=== PATIENT | male | born 1975 | race Caucasian/White ===

== ENCOUNTER 2016-04-10 10:54 | Emergency (ER) | payer OTHER ==
[~2016-04-10] VITALS: Ht 170.2 cm; Wt 90.0 kg
[2016-04-10 10:55] VITALS: BP 140/84; PULSE 64; RESP 12; TEMP 98.2; O2SAT 98
--- NOTE | 2016-04-10 11:27 | PD ---
HPI Chief Complaint: Abdominal Pain Time Seen by Provider: 11:25 Travel History International Travel<30 days: No Contact w/Intl Traveler<30days: No Traveled to known affect area: No History of Present Illness HPI 40-year-old male presents to the emergency department for evaluation of epigastric abdominal pain. Patient reports pain originally started 1 month ago , but worsened last night and this morning. Patient states he vomited once on Friday night. He denies any constipation or diarrhea. No blood in his stools. He denies any chronic medical problems and denies taking prescribed medications. Patient reports being a heavy drinker drinking approximately 6-7 beers daily, except on the weekends or he drinks approximately 12 beers daily. Patient denies tobacco or illegal drug use. Patient denies any history of chronic abdominal problems or any previous abdominal surgeries. He denies any chest pain or shortness of breath. PFSH Past Medical History Hx Anticoagulant Therapy: No Cardiovascular Problems: No Chemotherapy: No Cerebrovascular Accident: No Diabetes: No Respiratory: No Social History Alcohol Use: Yes (OCCASSIONALLY) Tobacco Use: No Substance Use: No Allergies-Medications (Allergen,Severity, Reaction): Coded Allergies: No Known Allergies (Unverified , 04/10/16) Reported Meds & Prescriptions Reported Meds & Active Scripts Active Carafate Liq (Sucralfate) 1 Gm/10 Ml Susp 1 Gm PO TID on empty stomach Protonix (Pantoprazole Sodium) 40 Mg Tab 40 Mg PO DAILY Review of Systems Except as stated in HPI: all other systems reviewed are Neg Physical Exam Narrative GENERAL: Well-developed well-nourished male patient, ambulatory. Afebrile. SKIN: Warm and dry. HEAD: Normocephalic. Atraumatic. EYES: No scleral icterus. No injection or drainage. NECK: Supple, trachea midline. No JVD or lymphadenopathy. CARDIOVASCULAR: Regular rate and rhythm without murmurs, gallops, or rubs. RESPIRATORY: Breath sounds equal bilaterally. No accessory muscle use. Lungs sounds are clear to auscultation. GASTROINTESTINAL: Abdomen soft and nondistended. Patient has epigastric tenderness to palpation. MUSCULOSKELETAL: No cyanosis, or edema. BACK: Nontender without obvious deformity. No CVA tenderness. Data Data Last Documented VS Vital Signs Date Time Temp Pulse Resp B/P Pulse Ox O2 Delivery O2 Flow Rate FiO2 04/10/16 15:28 98.4 50 14 143/91 98 Room Air Orders Complete Blood Count With Diff (04/10/16 11:24) Comprehensive Metabolic Panel (04/10/16 11:24) Lipase (04/10/16 11:24) Iv Access Insert/Monitor (04/10/16 11:24) Ecg Monitoring (04/10/16 11:24) Oximetry (04/10/16 11:24) Sodium Chloride 0.9% Flush (Ns Flush) (04/10/16 11:30) Electrocardiogram (04/10/16 11:24) Famotidine Inj (Pepcid Inj) (04/10/16 14:15) Al-Mag Hy-Si 40-40-4 Mg/Ml Liq (Mag-Al P (04/10/16 14:15) Lidocaine 2% Viscous (Xylocaine 2% Visco (04/10/16 14:15) Labs Laboratory Tests Test 04/10/16 11:30 White Blood Count 8.1 TH/MM3 Red Blood Count 5.24 MIL/MM3 Hemoglobin 14.4 GM/DL Hematocrit 41.5 % Mean Corpuscular Volume 79.2 FL Mean Corpuscular Hemoglobin 27.5 PG Mean Corpuscular Hemoglobin 34.8 % Concent Red Cell Distribution Width 13.3 % Platelet Count 261 TH/MM3 Mean Platelet Volume 9.6 FL Neutrophils (%) (Auto) 48.4 % Lymphocytes (%) (Auto) 39.4 % Monocytes (%) (Auto) 9.1 % Eosinophils (%) (Auto) 2.4 % Basophils (%) (Auto) 0.7 % Neutrophils # (Auto) 3.9 TH/MM3 Lymphocytes # (Auto) 3.2 TH/MM3 Monocytes # (Auto) 0.7 TH/MM3 Eosinophils # (Auto) 0.2 TH/MM3 Basophils # (Auto) 0.1 TH/MM3 CBC Comment DIFF FINAL Differential Comment Sodium Level 139 MEQ/L Potassium Level 3.6 MEQ/L Chloride Level 104 MEQ/L Carbon Dioxide Level 26.4 MEQ/L Anion Gap 9 MEQ/L Blood Urea Nitrogen 12 MG/DL Creatinine 0.86 MG/DL Estimat Glomerular Filtration 100 ML/MIN Rate Random Glucose 107 MG/DL Calcium Level 8.6 MG/DL Total Bilirubin 0.7 MG/DL Aspartate Amino Transf 44 U/L (AST/SGOT) Alanine Aminotransferase 86 U/L (ALT/SGPT) Alkaline Phosphatase 76 U/L Total Protein 7.5 GM/DL Albumin 3.7 GM/DL Lipase 124 U/L MDM Medical Decision Making Medical Screen Exam Complete: Yes Emergency Medical Condition: Yes Medical Record Reviewed: Yes Differential Diagnosis Pancreatitis versus gastritis versus diverticulitis versus cholecystitis Narrative Course 40-year-old male presents to the emergency department for evaluation of epigastric abdominal pain for 1 month, worsening last night. Patient admits to heavy alcohol use. EKG, CBC, CMP, Lipase are ordered and pending. Workup is initiated in triage. Patient will be moved to medical pod for further evaluation and disposition. Scripts Sucralfate Liq (Carafate Liq)1 Gm/10 Ml Susp1 Gm PO TID #900 ML Ref 0 on empty stomach Prov:Armida Jones DO 04/10/16 Pantoprazole (Protonix)40 Mg Tab40 Mg PO DAILY #30 TAB Ref 0 Prov:Armida Jones DO 04/10/16 Chasidy Trujillo Apr 10, 2016 11:27
[2016-04-10] MEDS ORDERED: SODIUM CHLORIDE 0.9% FLUSH 5 ML FLUSH IVF PRN (11:30)
[2016-04-10 11:58] LABS: AUTOMATED NEUTROPHIL # 3.9 TH/MM3 (1.8-7.7); BASOPHIL # 0.1 TH/MM3 (0-0.2); BASOPHIL % 0.7 % (0.0-2.0); EOSINOPHIL # 0.2 TH/MM3 (0-0.4); EOSINOPHIL % 2.4 % (0.0-4.0); HEMATOCRIT 41.5 % (39.0-51.0); HEMO FLAGS DIFF FINAL; LYMPH % 39.4 % (9.0-44.0); LYMPHOCYTE # 3.2 TH/MM3 (1.0-4.8); MEAN CELL VOLUME 79.2 FL (80.0-100.0); MEAN CORPUSCULAR HEMOGLOBIN 27.5 PG (27.0-34.0); MEAN CORPUSCULAR HGB CONC 34.8 % (32.0-36.0); MONO % 9.1 % (0.0-8.0); NEUT % 48.4 % (16.0-70.0); PLATELET COUNT 261 TH/MM3 (150-450); RED BLOOD COUNT 5.24 MIL/MM3 (4.50-5.90); RED CELL DISTRIBUTION WIDTH 13.3 % (11.6-17.2); WHITE BLOOD COUNT 8.1 TH/MM3 (4.0-11.0)
[2016-04-10 12:50] LABS: ALKALINE PHOSPHATASE 76 U/L (45-117); ALT (GPT) 86 U/L (12-78); AST (GOT) 44 U/L (15-37); BLOOD UREA NITROGEN 12 MG/DL (7-18); GLOMERULAR FILTRATION RATE 100 ML/MIN (>89)
[2016-04-10 12:51] LABS: ANION GAP 9 MEQ/L (5-15); BICARBONATE 26.4 MEQ/L (21.0-32.0); CHLORIDE 104 MEQ/L (98-107); POTASSIUM 3.6 MEQ/L (3.5-5.1); SODIUM (NA) 139 MEQ/L (136-145); TOTAL BILIRUBIN ADULT 0.7 MG/DL (0.2-1.0)
[2016-04-10 13:42] VITALS: O2SAT 98
[2016-04-10] MEDS ORDERED: FAMOTIDINE 20 MG/2 ML VIAL IV PUSH ONE (14:15)
[2016-04-10] MEDS ORDERED: ALUMINUM/MAGNESIUM/SIMETH 30 ML CUP PO ONE (14:15)
[2016-04-10] MEDS ORDERED: LIDOCAINE VISCOUS 2% SOLN 15 ML UDC PO ONE (14:15)
[2016-04-10 14:24] VITALS: BP 134/85; PULSE 67; RESP 17; O2SAT 97
--- NOTE | 2016-04-10 15:22 | PD ---
Physical Exam Date Seen by Provider: Apr 10, 2016 Data Data Last Documented VS Vital Signs Date Time Temp Pulse Resp B/P Pulse Ox O2 Delivery O2 Flow Rate FiO2 04/10/16 15:28 98.4 50 14 143/91 98 Room Air Orders Complete Blood Count With Diff (04/10/16 11:24) Comprehensive Metabolic Panel (04/10/16 11:24) Lipase (04/10/16 11:24) Iv Access Insert/Monitor (04/10/16 11:24) Ecg Monitoring (04/10/16 11:24) Oximetry (04/10/16 11:24) Sodium Chloride 0.9% Flush (Ns Flush) (04/10/16 11:30) Electrocardiogram (04/10/16 11:24) Famotidine Inj (Pepcid Inj) (04/10/16 14:15) Al-Mag Hy-Si 40-40-4 Mg/Ml Liq (Mag-Al P (04/10/16 14:15) Lidocaine 2% Viscous (Xylocaine 2% Visco (04/10/16 14:15) Labs Laboratory Tests Test 04/10/16 11:30 White Blood Count 8.1 TH/MM3 Red Blood Count 5.24 MIL/MM3 Hemoglobin 14.4 GM/DL Hematocrit 41.5 % Mean Corpuscular Volume 79.2 FL Mean Corpuscular Hemoglobin 27.5 PG Mean Corpuscular Hemoglobin 34.8 % Concent Red Cell Distribution Width 13.3 % Platelet Count 261 TH/MM3 Mean Platelet Volume 9.6 FL Neutrophils (%) (Auto) 48.4 % Lymphocytes (%) (Auto) 39.4 % Monocytes (%) (Auto) 9.1 % Eosinophils (%) (Auto) 2.4 % Basophils (%) (Auto) 0.7 % Neutrophils # (Auto) 3.9 TH/MM3 Lymphocytes # (Auto) 3.2 TH/MM3 Monocytes # (Auto) 0.7 TH/MM3 Eosinophils # (Auto) 0.2 TH/MM3 Basophils # (Auto) 0.1 TH/MM3 CBC Comment DIFF FINAL Differential Comment Sodium Level 139 MEQ/L Potassium Level 3.6 MEQ/L Chloride Level 104 MEQ/L Carbon Dioxide Level 26.4 MEQ/L Anion Gap 9 MEQ/L Blood Urea Nitrogen 12 MG/DL Creatinine 0.86 MG/DL Estimat Glomerular Filtration 100 ML/MIN Rate Random Glucose 107 MG/DL Calcium Level 8.6 MG/DL Total Bilirubin 0.7 MG/DL Aspartate Amino Transf 44 U/L (AST/SGOT) Alanine Aminotransferase 86 U/L (ALT/SGPT) Alkaline Phosphatase 76 U/L Total Protein 7.5 GM/DL Albumin 3.7 GM/DL Lipase 124 U/L [facility] Medical Record Reviewed: Yes Supervised Visit with PORFIRIO: Yes Interpretation(s) EKG: Sinus leni at 57bpm, qt/qtc: 431/425, no acute st or t wave changes Vital Signs Date Time Temp Pulse Resp B/P Pulse Ox O2 Delivery O2 Flow Rate FiO2 04/10/16 14:24 67 17 134/85 97 Room Air 04/10/16 13:47 15 04/10/16 13:42 98 Room Air 04/10/16 10:55 98.2 64 12 140/84 98 Room Air CBC & BMP Diagram 04/10/16 11:30 Differential Diagnosis Gastritis, gastric ulcer, PUD, pancreatitis, cholecystitis a majority reticulitis Narrative Course Patient is a 32-year-old male who presents to emergency room with complaints of epigastric pain for the past month. Patient reports that symptoms have been persistent but worse with eating and worse with drinking beer. Reports that he had increasing pain after eating [place]inid[place] food last night followed with a few cans of beers. Patient reports that he drinks about 6-7 beers per day, reports on weekends he drinks up to 12 beers per day. Patient reports that when he has to symptoms, he does feel nauseous, reports that he had 1 episodes of vomiting over the past weekend. Patient denies chest pain or shortness of breath. Patient denies nausea or vomiting at this time. Denies constipation or diarrhea. Patient with no recent travels or trips. All, patient nontoxic and evaluation. Vital Signs Date Time Temp Pulse Resp B/P Pulse Ox O2 Delivery O2 Flow Rate FiO2 04/10/16 14:24 67 17 134/85 97 Room Air 04/10/16 13:47 15 04/10/16 13:42 98 Room Air 04/10/16 10:55 98.2 64 12 140/84 98 Room Air Vital signs have been stable GENERAL: nad, nontoxic SKIN: Warm and dry. HEAD: Atraumatic. Normocephalic. ENT: No nasal bleeding or discharge. Mucous membranes pink and moist. NECK: Trachea midline. No JVD. CARDIOVASCULAR: Regular rate and rhythm. No murmur appreciated. RESPIRATORY: No accessory muscle use. Clear to auscultation. Breath sounds equal bilaterally. GASTROINTESTINAL: Abdomen soft, non-tender, nondistended. Hepatic and splenic margins not palpable. MUSCULOSKELETAL: No obvious deformities. No clubbing. No cyanosis. No edema. NEUROLOGICAL: Awake and alert. Normal speech. CBC & BMP Diagram 04/10/16 11:30 Lab work obtained, CBC: wnl, BMP: Patient with a blood sugar 107. AST/ALT were mildly elevated at 44/86. Lipase was 124. EKG at 1136 showed sinus bradycardia at 57 bpm, QT/QTc 431/425, no acute ST or T -wave changes. Patient was given a dose of Pepcid as well as GI cocktail. Plan to reevaluate patient. Patient with most likely gastritis versus gastric ulcer, will start him on PPI as outpatient. Patient understands need to follow-up with director biostatistics. Patient understands need to cut down his alcohol as well as his spicy foods. Signs and symptoms of when to return to the emergency room was reviewed with patient in detail. Patient reevaluated, patient with complete resolution of symptoms at this time. Abdomen is soft, nontender, nondistended, no peritoneal signs. Discussed signs and symptoms of when to return to the emergency room. Patient will follow -up with a director biostatistics and will return to ER as needed Diagnosis Primary Impression: Gastritis and gastroduodenitis Additional Impression: PUD (peptic ulcer disease) Referrals: Sheldon Rodriguez MD Patient Instructions: General Instructions Additional Instruction: Please follow-up with director biostatistics as soon as possible Return to ER as needed Please take Protonix on an empty stomach Please call your primary care doctor for earliest follow-up Please stop eating spicy foods and stop drinking beer as this can worsen your symptoms Med/Other Pt SpecificInfo: Prescription(s) given Scripts Sucralfate Liq (Carafate Liq)1 Gm/10 Ml Susp1 Gm PO TID #900 ML Ref 0 on empty stomach Prov:Armida Jones DO 04/10/16 Pantoprazole (Protonix)40 Mg Tab40 Mg PO DAILY #30 TAB Ref 0 Prov:Armida Jones DO 04/10/16 Disposition: 01 DISCHARGE HOME Condition: Stable Armida Jones DO Apr 10, 2016 15:22
[2016-04-10] MEDS ORDERED: CARA1SUS3 PO (15:24)
[2016-04-10] MEDS ORDERED: PROT40TA PO (15:24)
[2016-04-10 15:28] VITALS: BP 143/91; PULSE 50; RESP 14; TEMP 98.4; O2SAT 98
--- NOTE | 2016-04-10 16:54 | EKG ---
Date Performed: 04/10/2016 Time Performed: 11:36:26 PTAGE: 40 years EKG: SINUS BRADYCARDIA MODERATE INTRAVENTRICULAR CONDUCTION DELAY BORDERLINE ECG NO PREVIOUS TRACING DOCTOR: Jordi Bolivar Interpretating Date/Time 04/10/2016 16:53:27
== END 2016-04-10 16:22 | disposition home or self-care (01) ==
LOC: NEPE 10:54
DX: K29.70 Gastritis, unspecified, without bleeding (principal); K29.90 Gastroduodenitis, unspecified, without bleeding; K27.9 Peptic ulcer, site unspecified, unspecified as acute or chronic, without hemorrhage or perforation; R94.31 Abnormal electrocardiogram [ECG] [EKG]
CPT/HCPCS: 80053; 83690; 85025; 93005; 96374